=== PATIENT | male | born 1970 | race Caucasian/White ===

== ENCOUNTER 2021-05-27 11:18 | Inpatient (IN) | payer BC ==
[~2021-05-27] VITALS: Ht 177.8 cm; Wt 106.0 kg
--- NOTE | 2021-05-27 17:45 | NUR ---
PT ADMITTED TO THE MEDSUR FLOOR FROM ER, PT [id number], ROOM AIR , IND, DENIES ANY PAIN AT THE MOMENT, WAITING TO SEE DR FRANCIS, NPO, LR @ 125, COVID TEST NOT DONE IN ER ORDER PLACED PT IN ISOLATION PENDING RESULTS, NO OTHER NEEDS AT THE MOMENT.
--- NOTE | 2021-05-27 18:23 | NUR ---
RAPID COVID TEST DONE PER ORDER. COVID TEST COLLECTED FROM BOTH NARES W/O ISSUE. PT TOLERATED WELL.
--- NOTE | 2021-05-27 18:42 | NUR ---
PT SWABED FOR COVID TEST TOLERATED WELL WAITING ON RESULT.
--- NOTE | 2021-05-27 19:39 | NUR ---
SHIFT REPORT RECEIVED FROM YULISSA YUNG. PT RESTING IN BED. NO NEEDS AT THIS TIME. CALL LIGHT IN REACH.
--- NOTE | 2021-05-27 21:20 | NUR ---
IN TO GET VITALS, ICE WATER PROVIDED, URINAL PROVIDED FOR PT AT BEDSIDE, NO FURTHER NEEDS AT THIS TIME
--- NOTE | 2021-05-27 22:56 | NUR ---
IN TO CHECKON PTs OUTPUT, URINAL EMPTIED, ICE WATER FILLED, NO FURTHER NEEDS AT THSI TIME
--- NOTE | 2021-05-28 00:45 | NUR ---
IV PUMP ALARMING, RESOLVED. URINAL EMPTIED. PT REPORTS 1/10 BACK PAIN, DENIES NEED FOR INTERVENTION. NO OTHER NEEDS. CALL LIGHT IN REACH.
--- NOTE | 2021-05-28 01:09 | NUR ---
SHIFT REPORT GIVEN TO CHANELL YUNG.
--- NOTE | 2021-05-28 02:45 | NUR ---
IN TO GET VITALS, RN IN , PT HAS AN ELEVATED TEMP, PROVIDED ICE PACKS, NO FURTHER NEEDS
--- NOTE | 2021-05-28 02:59 | NUR ---
AWAKES EASILY, ON ROOM AIR, IVF INFUSING lac, TEMP 101.5 ORALLY. ICE PACKS TO AXILLA AND LOWER ABD. MEDICATED WITH TORADOL PER ABD PAIN AND FEVER, MESSAGE LEFT WITH DR FRANCIS, WILL CALL HIM AGAIN AND NOTIFY HIM OF TEMP
--- NOTE | 2021-05-28 03:03 | NUR ---
DR FRANCIS NOTIFIED VIA PHONE ABOUT TEMP 101.5, NEW ORDERS FOR TYLENOL 1GRAM PO Q6H PRN
--- NOTE | 2021-05-28 03:16 | NUR ---
Tylenol 1000mg po given per 101.5 temp. ice packs to axillary area and groin. temp rechecked at this time too 100.0
--- NOTE | 2021-05-28 06:11 | NUR ---
pt has slept off and on, on room air. was medicated with Toradol per c/o abd pain. Received Tylenol po and ice compresses were applied to axilary and groin area per temp of 101.5 mid shift this am. effective, temp 98.5 at this am,. NPO since midnight for possible surgery sometime today. pamphlet given earlier all questions answered to his satisfaction. tolerating well, IVF infusing w/o problems. voiding QS, call light at bedside
--- NOTE | 2021-05-28 07:10 | NUR ---
report recieved from assembler 1st shift rn npo since , plan for surgery today consent signed and in chart
--- NOTE | 2021-05-28 08:01 | NUR ---
rn in to do assessment and give morning meds, denies pain at the moment. A&Ox4 room air ind, LR @ 125, sales order coordinator setting up for chg shower, no needs at the moment
--- NOTE | 2021-05-28 09:46 | NUR ---
joselito from surgery here for patient. report given.
--- NOTE | 2021-05-28 13:32 | NUR ---
patient is in surgery, off of med surg floor.
--- NOTE | 2021-05-28 14:10 | NUR ---
MED REC COMPLETE
--- NOTE | 2021-05-28 14:14 | NUR ---
05/28/21 1414 Hernandez,Sandra Zapata 1401: PATIENT COUGHING. ORAL AIRWAY REMOVED. 1405: PATIENT DIAPHORETIC. DENIES PAIN. COOL WASHCLOTH PLACED ON FOREHEAD.
--- NOTE | 2021-05-28 14:45 | NUR ---
PT BACK FROM SURGERY, AWAKE AND ALERT ON ROOM AIR, VSS PAIN IS TOLERABLE PER PATIENT, PLACED ON CONTINOUS PULSE OX, PT HAS 2 INCSIONS RUQ WITH STERI STRIP ACTICOAT TEGADERM , SCANT DRAINAGE ON , UMBILICAL SITE STERI STRIP, JOLENE DRAIN IN RLQ, BILI DRAIN IN PLACE, MIN IN PLACE. SCHUYLER AT BEDSIDE
--- NOTE | 2021-05-28 15:45 | NUR ---
RN IN TO DO POST OP VITALS, PT IN BED WACTHING TV DENIES N/V , DRESING REAMINS THE SAME WITH SLIGHT SHADOWING, TOLERATING LIQUID, DRAINS INTACT UOP STABLE, VSS CONTINUE TO MONITOR
--- NOTE | 2021-05-28 16:53 | NUR ---
RN IN ROOM TO TO POST OP VS, PT SITTING IN BED AWAKE AND ALERT STATES PAIN IS AT A 2/10 BUT OCCAIONALLY JUMPS UP TO 10/10 WITH COUGH, DOESNT WANT ANY PAIN MEDS, TOLERATING FLUIDS, ABLE TO EAT JELLO AND PUDDING. DRESSING REMAINS THE SAME SLIGHT SHADOWING ON DRESSINGS VSS NO OTHER NEEDS
--- NOTE | 2021-05-28 17:45 | NUR ---
rn in to do post op vitals and assessment, patient tolerated dinner had a soup pain is getting a little worse 1 percocet given, alert and awake, room air, drains emptied 20 out of qian, 90 out of ttube, and 250 out of troncoso, patient is hot and sweating no fever at the moment cold wash rag and provided no other needs at the moment
--- NOTE | 2021-05-28 19:38 | NUR ---
pt awake, hob elevated, on room air, clear lungs, abd tender, ofe, RQuad incision covered with opticot/opsite, ss over umbilical area, TT patent draining mamadou colored thick drainage. qian with ss drainage. f/c not chronic in place, CPOX at bedside post op. tolerating liquids well, IVF infusing LAC w/o problems, medicted with toradol per abd pain, not passing gas. SCDS in place family in room, call light at bedside
--- NOTE | 2021-05-28 19:56 | OR ---
[facility] [address], [place] [address] Signed DATE OF OPERATION: 05/28/2021 SURGEON: Radha Francis MD PREOPERATIVE DIAGNOSES: 1. Acute cholangitis with obstructed common bile duct and jaundice. 2. probable obstructing distal common bile duct stone with associated acute cholecystitis POSTOPERATIVE DIAGNOSES: 1. Severe acute and chronic cholecystitis with complete common duct obstruction, greater than 1 cm stone. 2. 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 PROCEDURES: 1. Laparoscopy with conversion to open cholecystectomy, prolonged, complicated, and difficult. 2. Intraoperative cholangiogram x3. 3. Open common bile duct exploration. 4. Flexible choledochoscopy with extraction of obstructing distal common duct stone, placement of T-tube and completion cholangiogram, prolonged, complicated and difficult. ANESTHESIA: General endotracheal, Delroy Milton, BASE FILLER and local 20 mL of 0.25% Marcaine. INDICATION: This 50-year-old white male was admitted through the emergency room yesterday on May 27, 2021, clinically jaundiced with a bilirubin greater than 5.5, today 6.4 with elevated liver enzymes. His initial evaluation was a CT scan which showed marked dilation of intrahepatic ductal structures and a gallbladder which was somewhat distorted, but without obvious stones. There was no sign of neoplasm of the ampulla or pancreatic head. A subsequent ultrasound was performed at my request, which confirmed gallstones within the gallbladder. One was quite large and high probability of common duct stones as well. He has been admitted, fluid resuscitated, given intravenous antibiotics and is prepared at this point for operation. Notably, in addition to elevated liver enzymes and bilirubin, he has had clinical signs and symptoms of cholangitis, having temperature elevation as high as 101.1. He is Electronically Signed By: RADHA FRANCIS MD 05/28/211955 PATIENT NAME: RENAN MICHEL OPERATIVE REPORT DATE OF : 70 REPORT #: [id number] PHYSICIAN: RADHA FRANCIS MD PCP: TED FLORES PA-C REPORT IS CONFIDENTIAL AND NOT TO BE RELEASED WITHOUT AUTHORIZATION [facility] [address], [place] [address] Signed ready for operation at this time, which will include cholecystectomy, preferably by a laparoscopic approach, but an open procedure was discussed as well. A common duct exploration is quite likely --laparoscopic or open as necessary. We are mindful of the complete lack of regional access for ERCP of late; and a goal of complete clearance of the common duct is a primary goal of treatment at this time. FINDINGS: On laparoscopy, there was no sign of ascites or carcinomatosis. The liver appeared clinically normal. There was dense fibrosis of omentum and the round ligament with the falciform ligament in the region to the midportion of the gallbladder. The gallbladder was quite chronically inflamed and thickened and acutely inflamed as well. Conversion to open operation was definitely required. As it turns out, intense fibrosis of the second portion of the duodenum in the bulbar part to the infundibulum of the gallbladder was noted. This required meticulous dissection as the gallbladder was quite inflamed both chronically and acutely. A " coil spring " appearance of the infundibulum was noted concordant to pre op imaging. The operation could not possibly be done safely by laparoscopy. Due to the finding of dense chronic fibrosis of the infundibulum of the gallbladder to the duodenum extreme care was undertaken in dissecting out the pertinent anatomy of the biliary tree. This did allow ultimatel for cholecystectomy as well as open common duct exploration and choledochoscopy through the common bile duct with relief of the common bile duct obstruction, extracting a single 1.5 cm gallstone. There was a larger stone within the gallbladder itself and gallbladder debris and purulent material within the gallbladder itself. The proximal biliary tree was normal. Completion T-tube cholangiogram showed flow of contrast into the duodenum. There was good position of the T tube and no bile leak. An accessory drain was also placed in the sub hepatic space. DESCRIPTION OF PROCEDURE: The patient was brought to the operating room, given a general endotracheal anesthetic. Preoperative antibiotic Ancef was given in the operating room based on his dosing interval. Sequential compression device stockings used. Heparin had been subcutaneously administered. A Roberson catheter was placed, mindful of the high probability of a lengthy operation. The abdomen was clipped and prepared with a Betadine solution and draped sterilely. An infraumbilical incision was made and using an open Kellee cannula technique pneumoperitoneum was achieved to a level of 14 mmHg with carbon dioxide gas. Intraabdominal inspection showed no sign of ascites or carcinomatosis. Visualization of the gallbladder showed a white dense tip of the gallbladder with intense inflammatory changes of omentum and the round ligament to the region of the gallbladder. An Electronically Signed By: RADHA FRANCIS MD 05/28/211955 PATIENT NAME: RENAN MICHEL OPERATIVE REPORT DATE OF : 70 REPORT #: [id number] PHYSICIAN: RADHA FRANCIS MD PCP: TED FLORES PA-C REPORT IS CONFIDENTIAL AND NOT TO BE RELEASED WITHOUT AUTHORIZATION [address] [address] Signed additional set of trocars in the subxiphoid, right midclavicular, and right anterior axilla line was placed. Using blunt and electrocautery dissection, attempts were made to free the adherent omentum from the gallbladder. Some progress was made, however, it appeared that a hollow viscus, possibley the hepatic flexure of the colon, was densely adherent to the gallbladder and further dissection was deemed inadvisable. On that basis the laparoscope was removed. The trocar sites were found to be hemostatic and the infraumbilical fascial incision was reapproximated with interrupted 0 Vicryl suture. Plans were then made for open operation. A right subcostal incision was made in the usual way transecting subcutaneous tissue, rectus sheath and rectus abdominis muscle with electrocautery and the posterior sheath and its attendant peritoneum similarly incised. The abdomen was entered. A Bookwalter retractor was affixed to the table. Found was intense inflammation of the omentum and hollow viscus which in time became clear as the duodenum. Meticulous care was maintained to dissect the structures away from the gallbladder. At one point, and consideration was made that this might represent actual malignancy, but further dissection showed it simply to be chronic intense fibrosis. The Gallbladder was freed from the duodenum with meticulous care using blunt dissection with a Kittner dissector, minimal amounts of cautery and suction device. Ultimately, virtually all the gallbladder could be identified and the duodenum free. Centrally, the anatomy of the port hepatis was quite uncertain. At that point, rather than further define the infundibulum, consideration was made for a cholecystectomy from a top down approach if necessary. The peritoneum anteriorly and posteriorly on the gallbladder at the apex was undertaken and dissection carried through the thickened fibrotic wall of the gallbladder. Entry to the gallbladder was made as was inevitable. Purulent material was noted within the gallbladder. This was Gram stained and cultured. Further dissection was undertaken toward the infundibulum of the gallbladder down to the lowest gallbladder segement. Photographs were taken throughout. A large stone at least 2.5 cm was identified and removed. The outlet of the gallbladder was not obvious due to fibrosis. It appeared that the infundibulum was coiled, extended superiorly, then inferiorly and ultimately to the remaining of the portal structures. A butterfly needle was used to perform cholangiogram in this area of presumed infundibulum which confirmed the anatomy as suspected. Further dissection was undertaken ultimately freeing it to what likely would be the common hepatic duct. It was quite clear that the infundibulum of the gallbladder was fibrotic and thickened and not going to end up being a narrow or even moderate size of cystic duct proper. Consideration was made, that this could represent a choledochal cyst or something of that sort. However, further dissection was undertaken and another butterfly needle cholangiogram performed showing Electronically Signed By: RADHA FRANCIS MD 05/28/211955 PATIENT NAME: RENAN MICHEL OPERATIVE REPORT DATE OF : 70 REPORT #: [id number] PHYSICIAN: RADHA FRANCIS MD PCP: TED FLORES PA-C REPORT IS CONFIDENTIAL AND NOT TO BE RELEASED WITHOUT AUTHORIZATION [address] [address] Signed that simply the infundibulum and cystic duct were quite wide and very fibrotic. At that point, the common duct had been well identified. A common duct exploration was clearly needed given the cholangiogram findings which certainly did include obstruction, the cholangiogram having shown a completely obstructing distal common duct stone. A longitudinal choledochotomy was made in the common bile duct inferior to the cystic duct entry after stabilizing the common bile duct with 4-0 PDS sutures. Entry to the common bile duct was with an #11 blade and extended inferiorly with Lopez scissors. Egress of clear bile was noted. Irrigation was undertaken. There was no egress of the stone at that point. A flexible choledochoscope with saline infusion was placed into the choledochotomy; proximal evaluation of the common hepatic duct showed normal biliary radicles with no sign of neoplasm or abnormality. The choledochoscope was then directed distally which identified a relatively large fully obstructing distal common duct stone. A basket device was used to ultimately grasp it and extract it in continuity with the scope. The choledochotomy was rather small compared to the stone so extension of the common duct incision was undertaken allowing it ultimately to be removed. Reintroduction of the scope showed clearance of any further stone but certainly inflammatory changes and a roughed up appearance of the distal duct as might be expected from the impacted stone. A number 14 T tube was cut to the usual configuration and placed into the choledochotomy and secured into the common bile duct with interrupted 4-0 PDS sutures. The remnant of the gallbladder with its broad infundibulum and poorly defined cystic duct was secured with a tonsil clamp and oversewn in a running horizontal mattress configuration, providing complete closure to the remnant which allowed for amputation of the gallbladder itself. Photographs were taken. Irrigation was undertaken; through an available trocar site a 7 mm flat candace drain was placed in the subhepatic space. A T-tube cholangiogram was then performed, which showed free flow of contrast in the biliary tree with passage of contrat into the duodenum. There was clearance of the obstructing stone and no residual obstruction. Irrigation was undertaken. Hemostasis was assured with electrocautery in the liver bed Notably, the infundibulum had been oversewn with a running 2-0 PDS and showing good security and no sigh of bile leakage. Electronically Signed By: RADHA FRANCIS MD 05/28/211955 PATIENT NAME: RENAN MICHEL OPERATIVE REPORT DATE OF : 70 REPORT #: [id number] PHYSICIAN: RADHA FRANCIS MD PCP: TED FLORES PA-C REPORT IS CONFIDENTIAL AND NOT TO BE RELEASED WITHOUT AUTHORIZATION [facility] [address], [place] [address] Signed The drains and T-tube were brought through the abdominal wall and secured to the skin with nylon suture. Plans were then made for closure. The posterior sheath and its attendant peritoneum were reapproximated with running #1 PDS suture to muscular layer. Subcutaneous tissue was irrigated with saline solution. The anterior rectus sheath reapproximated with running PDS suture as well. The skin was closed with running subcuticular 3-0 Vicryl. The trocar sites were similarly reapproximated after irrigation. Steri-Strips were applied as was an Acticoat dressing. An OpSite was used to secure the T-tube to the abdominal wall as well as to the accessory drain. The T-tube was attached to 32-inch tubing and a bile bag. The patient was ultimately extubated and transferred to the recovery room in good condition having suffered no complication. Blood loss was estimated at 100 mL. Sponge, needle, and instrument counts were reported as correct x3. The operation was prolonged, complicated, and difficult lasting from approximately 10:30 a.m. to 2 p.m. but was accomplished safely and effectively without complication. Radha Francis MD JM/MODL /[id number] cc: TULIO [address] [facility] Copies: TED FLORES PA-C ~ Electronically Signed By: RADHA FRANCIS MD 05/28/21 195 PATIENT NAME: RENAN MICHEL Zev OPERATIVE REPORT DATE OF : 70 REPORT #: [id number] PHYSICIAN: RADHA FRANCIS MD PCP: TED FLORES PA-C REPORT IS CONFIDENTIAL AND NOT TO BE RELEASED WITHOUT AUTHORIZATION
--- NOTE | 2021-05-28 22:42 | NUR ---
repositions self in bed, hob elevated. ivf infusing. no c/o pain. TT draining bile looking drainage, qian with ss drainage. abd dressing with old drainage f/c patent. goes back to sleep right away, will take for a walk when more awake
--- NOTE | 2021-05-29 01:42 | NUR ---
USED CALL LIGHT, TURNED AND REPOSITIONED, CONFUSED TO PLACE, DATE AND SITUATION, REORIENTED, CALL LIGHT AT BEDSICE. F/C PATENT, IVF INFUSING W/O PROBLEMS
--- NOTE | 2021-05-29 02:25 | NUR ---
awakes easily, coop with assessment. on room air. abd tender HEA, passing gas. RQuadrant dressing in place with old drainage. JOLENE and TT patent. F/C patent. pt aware that f/c may be dc'd after walking if he tolerates it good. stated understanding, tolerating liquids well, no emesis. c/o abd pain, medicated with 2 percocet
--- NOTE | 2021-05-29 03:06 | NUR ---
Pt ambulated hallway up to nursing station and back, tolerated well, back to bed. passing gas. would like to have f/c dc'd at [id number] with vitals. went back to sleep after returning to bed
--- NOTE | 2021-05-29 04:48 | NUR ---
Resting, room air, no distress. IVF infusing,
--- NOTE | 2021-05-29 06:15 | NUR ---
pt medicated with Toradol early on shift, motrin this am and percocet mid shift, per abd pain, effective. abd tender dressing R low quad, TT and QIAN patent. HEA, passing gas. ambulated hallway up to [facility] station, tolerated well. f/c was dc'd at 0604. IVF infusing LA w/o problems, no c/o adverse reaction to abx. pleasant and cooperative. qian draining teaching done, receptive, cont to reinforce. tolerated liquids well, no emesis.
--- NOTE | 2021-05-29 07:30 | NUR ---
Shift report received from AGA Le pt resting safely in bed w/ call light in reach. Pt denies any needs at this time.
--- NOTE | 2021-05-29 08:50 | NUR ---
Pt sitting up in bed safely w/ call light in reach. Pt denies pain or nause at this time, surgical incision and drains WNL, no signs of infection. Active bowel tones, and pt reports passing gas, abd slightly tender w/ palpation. Morning assesment complete, scheduled meds given, IV fluids infusing per providers orders. Pt denies any further needs at this time, pt curious about possibly going home, informed pt he will more than likely stay another night but can discuss this w/ when he comes in this afternoon
--- NOTE | 2021-05-29 11:30 | NUR ---
Pt sitting up in bed safely w/ call light in reach pt denies any pain, nausea, or needs at this time.
--- NOTE | 2021-05-29 12:34 | NUR ---
Dr. Gray in room to asses pt, who informed the pt he will in fact stay another night and possibly discharge tomorrow morning as long as he meets criteria. Pt understanding and agreeable pt still denies pain or nausea at this time. Pt resting safely in bed w/ call light in reach
--- NOTE | 2021-05-29 12:52 | HP ---
[facility] [address], [place] [address] Signed ADMISSION DATE: 05/27/2021 REASON FOR ADMISSION: Acute cholecystitis with choledocholithiasis and common duct exploration; acute cholangitis. HISTORY: This 50-year-old white man lives in [place] with his three teenage daughters. His ex- accompanies him at this time. The patient has had approximately five days of increasing abdominal pain, not feeling well. He presented to the emergency room at approximately 1:30 this afternoon, was evaluated by Dr. Cleaning. He was found to have clinical evidence of jaundice and lab studies confirmed this with a bilirubin of 5.8, and other liver enzymes elevated as well including alkaline phosphatase of 201. A CT scan of the abdomen was performed and interpreted by Dr. Tavares showing significant intrahepatic ductal dilatation of biliary tree. There were no stones of the gallbladder or common duct seen on that imaging study. I was called by Dr. Cleaning and recommended an ultrasound be performed to ascertain if in fact there were gallstones associated with this process or perhaps this represented a neoplasm. The ultrasound that was performed did confirm in fact gallstones and an obstructed common bile duct with suspicion of noncalcified stone in the distal common bile duct. The bed of the pancreas had no actual neoplasm on either study. He is admitted for further evaluation and care. Currently, the patient feels rather uncomfortable and definitely thirsty. IV fluids are running. PAST MEDICAL HISTORY: Rather unremarkable. He has no prior abdominal surgery of any sort. MEDICATIONS: He takes no medications on a routine basis. ALLERGIES: He has allergy only to penicillin. SOCIAL HISTORY: He is , but on friendly terms with his , who is with him at this time. He has three teenage daughters 14, 16, and 19; his 19-year-old daughter is having her birthday tomorrow. The patient works at a [employer] in [place], [place] and commutes from [place] on a daily basis and has for 21 years. REVIEW OF SYSTEMS: Electronically Signed By: RADHA FRANCIS MD 05/29/21 1252 PATIENT NAME: RENAN MICHEL HISTORY AND PHYSICAL DATE OF : 70 REPORT #: [id number] PHYSICIAN: RADHA FRANCIS MD PCP: TED FLORES PA-C REPORT IS CONFIDENTIAL AND NOT TO BE RELEASED WITHOUT AUTHORIZATION [address] [address] Signed He denies any shortness of breath or chest pain. He has had no dysphagia or dysuria. Denies any hematemesis or blood per rectum. DICTATION ENDS HERE MD BARBIE Treviño/ZARYA /[id number] Copies: ~ Electronically Signed By: RADHA FRANCIS MD 05/29/21 1252 PATIENT NAME: RENAN MICHEL HISTORY AND PHYSICAL DATE OF : 70 REPORT #: [id number] PHYSICIAN: RADHA FRANCIS MD PCP: TED FLORES PA-C REPORT IS CONFIDENTIAL AND NOT TO BE RELEASED WITHOUT AUTHORIZATION
--- NOTE | 2021-05-29 12:52 | HP ---
[facility] [address], [place] [address] Signed ADMISSION DATE: 05/27/2021 CONTINUATION: Continuation to dictation #[id number]. REVIEW OF SYSTEMS: The patient denies any shortness of breath or chest pain. He does feel somewhat thirsty. He has had mild right upper abdominal pain and epigastric pain and bilateral flank pain as well. He has had no hematemesis or blood per rectum. He has noted jaundice and dark colored urine. PHYSICAL EXAMINATION: GENERAL: Pleasant white man, who looks to be in no significant distress at this time. VITAL SIGNS: Temperature is 97.9, previously 99.2 and as high as 101.2 at approximately 3:46 p.m. today. His blood pressure currently is 143/87, pulse is 77. Trachea is midline. Mucous membranes are rather dry. CHEST: Clear. HEART: Regular without murmur. ABDOMEN: Nondistended and there is no clinical evidence of ascites. He has minimal tenderness in right subcostal area. There is no palpable mass. EXTREMITIES: Show no clubbing, cyanosis, or edema. LABORATORY STUDIES: Show white count of 10.0, hematocrit 43.3, platelets 146,000. Chem profile with a sodium of 128, potassium 3.2, chloride 94, creatinine 1.10, glucose 122, lactic acid 0.5, total bilirubin 5.8, AST 78, ALT 228, alkaline phosphatase 201. Ammonia level is 21. Lipase is 101. Imaging studies were reviewed and reports reviewed as well. There is marked dilation of the intrahepatic ductal system as well as the gallbladder itself. There is a cyst measuring 4.2 cm contiguous with the apex of the gallbladder. Within the gallbladder, there is an echogenic stone near the neck measuring 1.9 cm in length, which appears to be fixed and non-movable. There is some sludge within the lumen. The gallbladder wall is thickened measuring 3.5 mm. There is no pericholecystic fluid or ascites. The common bile duct superior to the pancreas measures 14 mm. There is no stone identified within the duct on the CT scan. Ultrasound performed confirmed parenchyma of the liver is heterogeneous without evidence of mass. ASSESSMENT: The patient appears to have acute calculus cholecystitis with cholangitis and common duct obstruction, likely related to stones or sludge. Appears to be no evidence of Electronically Signed By: RADHA FRANCIS MD 05/29/21 1252 PATIENT NAME: RENAN MICHEL HISTORY AND PHYSICAL DATE OF : 70 REPORT #: [id number] PHYSICIAN: RADHA FRANCIS MD PCP: TED SHAH PA-C REPORT IS CONFIDENTIAL AND NOT TO BE RELEASED WITHOUT AUTHORIZATION [facility] [address] [place] [id number] Signed neoplasm of the ampulla or the head of the pancreas, so that could never be known entirely on imaging studies alone. The patient is admitted to undergo fluid resuscitation, IV antibiotic administration, anticipating a plan for laparoscopic cholecystectomy with laparoscopic common duct exploration tomorrow. I discussed with the patient and his ex- the risks of bleeding, infection, bile duct injury, need for open procedure and importantly failure to cure the problem laparoscopically requiring an open procedure. He understands this and wishes to proceed. If open common duct exploration is required, a drain as well as a T-tube would likely be beneficial. For tonight, he is okay to have clear liquids and additional fluids will be given. He will be maintained on IV antibiotics, DVT prophylaxis, and pain control. He will be n.p.o. after midnight, and we will anticipate surgery tomorrow. His original presentation was consistent with acute cholangitis, which seems to be clinically clearing with interventions already initiated. I did discuss with the patient and his ex- the possibility of neoplastic change rather than biliary stones as causing this problem. There is no "double duct" sign, which more readily identified such phenomenon, but it is still a possibility. MD BARBIE Treviño/ZAYRA /[id number] cc: Dr. Sy Shah PA-C Copies: TED SHAH PA-C ~ Electronically Signed By: RADHA FRANCIS MD 05/29/21 1252 PATIENT NAME: RENAN MICHEL HISTORY AND PHYSICAL DATE OF : 70 REPORT #: [id number] PHYSICIAN: RADHA FRANCIS MD PCP: TED SHAH PA-C REPORT IS CONFIDENTIAL AND NOT TO BE RELEASED WITHOUT AUTHORIZATION
--- NOTE | 2021-05-29 14:45 | NUR ---
Pt c/o 5/10 pain at surgical incision site, PRN Tylenol and Motrin given per request. Pt ambulated 3 full laps in hallway, bed linens changed and pt now resting safely w/ call light in reach, no further needs at this time.
--- NOTE | 2021-05-29 15:23 | NUR ---
PT JUST RETURNED FROM WALKING THE RAMIREZ. PT NOW SITTING ON EDGE OF BED RANTING ABOUT BEING IN THE HOSPITAL. CALL LIGHT WITHIN REACH, NO FURTHER NEEDS AT THIS TIME.
--- NOTE | 2021-05-29 16:00 | NUR ---
Pt resting in bed safely w/ call light in reach. Pt states pain is better after PRN meds and ambulating. Pt also states he was able to burp after ambulating and felt less pressure in his abdomen. Pt denies any further needs at this time
--- NOTE | 2021-05-29 17:39 | NUR ---
PT LYING IN BED WATCHING TV. IN ROOM. PT HAS NOT EVEN UNWRAPPED DINNER YET. CALL LIGHT IN REACH, NO FURTHER NEEDS AT THIS TIME.
--- NOTE | 2021-05-29 18:00 | NUR ---
Pt up in hallway ambulating, pt denies any pain, nausea, or needs at this time.
--- NOTE | 2021-05-29 18:24 | NUR ---
PT JUST FINISHING DINNER ON EDGE OF BED. AGA YANCEY NOTIFIED OF LOW FLUID INTAKE. CALL LIGHT WITHIN REACH, NO FURTHER NEEDS AT THIS TIME. PT INDEPENDENT IN ROOM
--- NOTE | 2021-05-29 21:31 | NUR ---
Awake, watching TV, c/o abd pain. medicated with 2 Percocet tabs. abd with slight distention, HEA, passing gas, no bm. ss low umbilical area and bruise present. incision edges well approx, dry. TT patent drainig bile colored discharge, teaching done, cont to reinforce. JOLENE patent with ss drainage. On room air, lungs clear bilat, SL LFA patent. no c/o adverse reaction to abx IV. tolerating fluids well, no emesis. voiding QS light mamadou colored urine. alert and oriented, uses call light, ambulating in room, scds
--- NOTE | 2021-05-30 00:04 | NUR ---
MEDICATED WITH MOTRIN PER ABD PAIN, AWAKE, WATCHING TV
--- NOTE | 2021-05-30 02:28 | NUR ---
RESTING, EYES CLOSED, NO DISTRESS, ON ROOM AIR. CALL LIGHT AND FLUIDS AT BEDSIDE. NO FURTHER C/O PAIN. TT AND JOLENE PATENT
--- NOTE | 2021-05-30 03:21 | NUR ---
C/O ABD PAIN, MEDICATED WITH 1 PERCOCET. ABD TENDER OPTICOT AND OPSITE TO r QUAD. JOLENE AND TT PATENT. TT EMPTYING TEACHING DONE, COOPERATIVE. TOLERATING LIQUIDS WELL. UP TO BR, USES URINAL, VOIDING QS, DARK YELLOW URINE.
--- NOTE | 2021-05-30 03:57 | NUR ---
RESTING, NO DISTRESS, HOB ELEVATED, EYES CLOSED. CALL LIGHT AT HANDS REACH
--- NOTE | 2021-05-30 06:21 | NUR ---
medicated with motrin per abd pain at this time. On room air. abd tender, passing gas, no bm. R quad opticot dressing with old drainage, covered with opsite. TT and JOLENE patent. sutured in place. pt has been taught on how to empty both JOLENE and TT, cont to reinforce teaching. Has been medicated with both Percocet and Motrin with good pain relief. Voiding QS dark yellow urine. ambulated in room, scds on, taken off at this time. tolerating well. alert andoriented. uses call light.
--- NOTE | 2021-05-30 07:31 | NUR ---
PT UP WALKING IN ROOM, STATES HE FEELS "PRETTY GOOD" DENIES PAIN HOPES TO HOME TODAY. DENIES NEEDS AT THIS TIME AGREES HE IS READY FOR BREAKFAST
--- NOTE | 2021-05-30 08:39 | NUR ---
PT TOLERATES 100% OF REGULAR BREAKFAST NO C/O PAIN OR NAUSEA. UP TO AMBULATE THE HALLS SEVERAL LAPS WELL TOLERATED.
--- NOTE | 2021-05-30 10:03 | NUR ---
PATIENT IN BED RESTING AT THIS TIME, AT BEDSIDE. PATIENT SAID SHOWER MAYBE LATER, HE WILL LET ME KLNOW. VITALS AND I&O'S CHARTED. CALL LIGHT IN REACH. NO FURTHER NEEDS AT THIS TIME.
--- NOTE | 2021-05-30 10:34 | NUR ---
REVIEWED PAIN MEDICATIONS AVAILABLE WITH THIS PT, AND WHEN HE WAS MEDICATED LAST. HE DENIES NEED OF TYLENOL OR OTHER, STATES HE FEELS PRETTY GOOD, AND WILL NOTIFY STAFF IF HE FEELS HE NEEDS SOMETHING. AT BEDSIDE WATCHING TV
--- NOTE | 2021-05-30 11:02 | NUR ---
I was able to meet with Gordy and his x- this morning. Both state that they are very happy with his care. He feels that the nurses are doing "a good job." He did say that he doesn't quite understand his medications being given in the hospital. Stating "I hardly ever take medicine so I don't really understand." We took time to go over all his current medications in the hospital, including the side effects and what they are used for. Also shared the ones that are scheduled and the ones he asks for, i.e. narcotics, zofran. Also explained the reason for the Lovenox, etc. that are being used prophylactically in the hospital. Mr Sellers does talk about being able to go back to work, I shared that he would need to discuss this with his doctor. His ex- states that she and their two daughters will be in the home to help him as needed until he is recuperated. Both patient and his ex- Soraya deny questions or concerns at this time.
--- NOTE | 2021-05-30 13:22 | NUR ---
PT HAS AMBULATED THE RAMIREZ SEVERAL TIMES THIS SHIFT. EATEN 100% BOTH MEALS CONTINUES WITHOUT C/O DISCOMFORT. EMPTY'S OWN DRAINS APPROPRIATELY ABLE TO DEMONSTRATE STRIPPING THE LINES TO THE JOLENE. DENIES QUESTIONS OR CONCERNS
--- NOTE | 2021-05-30 14:04 | NUR ---
PATIENT IND IN ROOM. VITALS AND I&O'S CHARTED. CALL LIGHT IN REACH. NO FURTHER NEEDS AT THIS TIME.
--- NOTE | 2021-05-30 14:10 | NUR ---
PT ALERT, ORIENTED AND RESTING IN BED WITH TV ON AND LIGHTS AND SHADE DRAWN. PT ADMITTED HE HAS NEVER BEEN IN HOSPITAL BEFORE. ASKED PT IF HE FEELS THAT HE HAS BEEN KEPT INFORMED, TO WHICH HE REPLIED: "I GUESS. I REALLY DON'T KNOW WHAT QUESTIONS TO ASK". SPENT TIME HELPING PT, GAVE BLESSING AND G.POST. WILL CONTINUE TO FOLLOW NEEDED
--- NOTE | 2021-05-30 16:37 | NUR ---
PT RESTING IN BED DENIES PAIN OR NEEDS OF.
--- NOTE | 2021-05-30 17:43 | NUR ---
DR FRANCIS IN TO SEE PT DISCUSSES PLAN GOING FORWARD AT LENGTH. ALL QUESTIONS ANSWERED. PT DENIES CONCERNS. T-TUBE CLAMPED WILL MONITOR FOR NAUSEA OR INCREASED PAIN.
--- NOTE | 2021-05-30 17:46 | NUR ---
PATIENT GIVEN 600MG OF MOTRIN FOR 3/10 ABDOMINAL PAIN.
--- NOTE | 2021-05-30 18:13 | NUR ---
ELEVATED BP REPORTED TO DR FRANCIS
--- NOTE | 2021-05-30 18:50 | NUR ---
Patient BP was 152/90. MAP 106. Pulse was 68. On right arm. RN was notified.
--- NOTE | 2021-05-30 19:05 | NUR ---
BEDSIDE REPORT RECEIVED FROM OFFGOING RNNEMO. CALL LIGHT IN REACH.
--- NOTE | 2021-05-30 21:15 | NUR ---
PT ASSESSMENT COMPLETE. PT DENIES PAIN, NAUSEA, OR SOB. PT REPORTS OCCASIONAL COUGH, NOT NOTED DURING THIS ASSESSMENT. LUNG SOUNDS CLEAR THROUGHOUT. EDUCATION REGARDING TURN, COUGH, AND DEEP BREATHING AND INCREASED RISK OF PNA POST OPERATIVELY. PT STATES UNDERSTANDING. BT'S ACTIVE. JOLENE DRAINING SEROSANG DRAINAGE. T-TUBE CLAMPED, PT TOLERATING WELL. ABD SOFT, NON TENDER TO PALPATION. IV FLUSHED, PATENT, WNL. PT REQUESTS TO TAKE SHOWER, FAMILY AT BEDSIDE. IV WRAPPED, SUPPLIES GATHERED. PT STATES HE WILL CALL IF HE NEEDS HELP/ WHEN FINISHED. DENIES FURTHER NEEDS AT THIS TIME. CALL LIGHT IN REACH.
--- NOTE | 2021-05-30 23:57 | NUR ---
PT ROUNDING. PT LYING IN BED AWAKE, WATCHING TV. PT WITH SLIGHT COUGH WHILE FIBER OPTIC ASSEMBLER AT BEDSIDE. AGREES PAIN IS IMPROVED BY PRN PREVIOUSLY ADMINISTERED. STATES, "THE PAIN MEDS ARE WORKING OR THAT COUGH WOULDVE HURT LIKE HELL." DENIES FURTHER NEEDS AT THIS TIME. CALL LIGHT IN REACH.
--- NOTE | 2021-05-31 03:21 | NUR ---
PT ROUNDING. PT RESTING IN BED, WAKES WHEN WRTIER OPENS THE DOOR. PT WAVES, DENIES NEEDS. CALL LIGHT IN REACH.
--- NOTE | 2021-05-31 06:09 | NUR ---
PT ASSESSMENT COMPLETE. PT RESTING IN BED AWAKE, COOK ROAST AT BEDSIDE. PT REPORTS INCREASING PAINN, RATES 5/10. REQUESTS PRN PAIN MEDICATION, SEE EMAR. PT DENIES NAUSEA, OR SOB. BT'S ACTIVE.ABD NON TENDER TO PALPATION. T-TUBE REMAINS CLAMPED. JOLENE WITH SEROSANGUINOUS DRAINAGE PRESENT. ICE WATER REFILLED. PT DENIES FURTHER NEEDS AT THIS TIME. CALL LIGHT IN REACH.
--- NOTE | 2021-05-31 07:53 | NUR ---
PT RESTING IN BED AGREES HE HAD A GOOD NIGHT. DENIES PAIN EXCEPT WITH COUGH AND MOVEMENT, COMFORTABLE AT REST. STATES HE IS READY FOR BREAKFAST AND IS TOLERATING T-TUBE BEING CLAMPED FINE. NO INCREASED PAIN, NAUSEA, OR BLOATING. FRESH H20 AT BEDSIDE CALL LIGHT AND NEEDED ITEMS IN REACH.
--- NOTE | 2021-05-31 08:54 | NUR ---
PT TOLERATES 100% OF REGULAR MEAL CONTINUES UP IN ROOM INDEPENDANTLY. AGREES HE WILL WALK THE HALLS AGAIN HE WAITS FOR DC.
--- NOTE | 2021-05-31 10:07 | NUR ---
PATIENT IN BED RESTING AT THIS TIME. VITALS AND I&O'S CHARTED. PATIENT REFUSED SHOWER. AM CARE AND ORAL CARE SUPPLIES AT SINK AND PATIENT IND. IN ROOM. CALL LIGHT IN REACH. NO FURTHER NEEDS AT THIS TIME.
--- NOTE | 2021-05-31 11:00 | NUR ---
Spoke with Gordy. He plans on dc today and is awaiting Dr. Leavitt for discharge. He believes plans on sending him home today. Pt denies any needs for discharge. He lives with daughters and his ex will assist also.
--- NOTE | 2021-05-31 12:32 | NUR ---
PT RESTING IN HIS BED EATING NOON MEAL. AGREES HE IS SOMEWHAT PAINFUL AND WOULD LIKE PAIN MEDICATIONS. ADMINISTERED ORDERED
--- NOTE | 2021-05-31 14:01 | NUR ---
DR. FRANCIS IN TO SEE PATIENT, D/C JOLENE TUBE, REMOVE DRESSING FROM INCISION. T-TUBE LINE IS COVERED WITH CLEAR DRESSING. PATIENT GIVEN INSTRUCTIONS TO NOT LIFT ANYTHING OVER 20LBS.
[2021-05-31] MEDS ORDERED: OXYCODON-ACETA1 EAC2 PO (14:10)
[2021-05-31] MEDS ORDERED: IBUPROFEN600 MG PO (14:10)
[2021-05-31] MEDS ORDERED: CIPROFLOXACIN500 MG PO (14:10)
[2021-05-31] MEDS ORDERED: FAMOTIDINE20 MG PO (14:11)
[2021-05-31] MEDS ORDERED: ACETAMINOPHEN500 MG PO (14:11)
--- NOTE | 2021-05-31 14:37 | NUR ---
DR FRANCIS IN TO SEE PT DC ORDERS WRITTEN
--- NOTE | 2021-06-01 09:58 | PATH ---
[facility] [address] [place], [place] [address] Signed SPECIMEN(S): A GALLBLADDER WITH STONES SPECIMEN SOURCE: A. GALLBLADDER WITH STONES CLINICAL HISTORY: Acute cholecystitis. FINAL PATHOLOGIC DIAGNOSIS: Gallbladder, cholecystectomy: - Chronic cholecystitis. - Cholelithiasis. - No evidence of neoplasia. TWK:[id number] MICROSCOPIC EXAMINATION: Histologic sections of all submitted blocks are examined by light microscopy. These findings, together with the gross examination, support the pathologic diagnosis. GROSS DESCRIPTION: The specimen, labeled "RG," and designated on the requisition "gallbladder with stones," is received in formalin and consists of: Specimen: Previously incised gallbladder. Dimensions: Upon reconstruction, 8.2 x 3.3 x 2.8 cm. Serosa: Munoz to brown discolored, smooth, glistening. Cystic Duct: 0.3 cm in diameter, patent, and the margin is inked blue. Calculi: The specimen container contains two, hard, granular, yellow to brown, oval calculi that are 1.0 and 3.7 cm in greatest dimension. Mucosa: Munoz to brown, markedly denuded, glistening. Wall thickness: 0.2 up to 0.6 cm. Lymph node: No pericystic lymph nodes are grossly identified. Additional: None. Rehab Aide sections are submitted in cassette (A1). AI (under the direct supervision of a pathologist) The Gross Description was prepared using a voice recognition system. The report was reviewed for accuracy; however, sound-alike word errors, addition and/or deletions may occur. If there is any question about this report, please contact Client Services. PATIENT NAME: RENAN MICHEL PATHOLOGY DATE OF : 70 REPORT #: [id number] PHYSICIAN: HILLARY GONZALEZ PCP: TED FLORES PA-C REPORT IS CONFIDENTIAL AND NOT TO BE RELEASED WITHOUT AUTHORIZATION [facility] [address] [address] Signed PERFORMING LABORATORY: The technical component was performed by [place] [address] (Tuna Purse Seiner: Lois Ivey MD; CLIA# [id number]). Professional interpretation was performed by [employer] [facility], [address] [address] (CLIA# [id number]). Diagnostician: Yosvany Fernando MD Pathologist Electronically Signed 06/01/2021 Copies: ~ PATIENT NAME: RENAN MICHEL PATHOLOGY DATE OF : 70 REPORT #: [id number] PHYSICIAN: HILLARY GONZALEZ PCP: TED FLORES PA-C REPORT IS CONFIDENTIAL AND NOT TO BE RELEASED WITHOUT AUTHORIZATION
--- NOTE | 2021-06-01 13:37 | DS ---
[facility] [address] [place], [place] [address] Signed ADMISSION DATE: 05/27/2021 DISCHARGE DATE: 05/31/2021 REASON FOR ADMISSION: Acute cholecystitis and obstructive jaundice with cholangitis. HISTORY OF PRESENT ILLNESS: This 50-year-old white man, who lives in [place] presented to the emergency room with approximately five days of increasing abdominal pain. His evaluation in the emergency room by Dr. Cleaning included a CT scan, which showed dilatation of the intrahepatic ductal system and findings suggestive of common duct obstruction on that basis. Stones were not seen on the CT scan and a subsequent ultrasound was undertaken at my recommendation that confirmed large gallstone in the gallbladder and possible biliary tree, obstruction related to gallstones. On that basis, he was admitted for further evaluation and care. Notably, he did have elevated alkaline phosphatase of 201, bilirubin of 5.8, and had been febrile with temperature greater than 101. PHYSICAL EXAMINATION: GENERAL: Showed a well-developed, well-nourished white male . Trachea is midline. CHEST: Clear. HEART: Regular, without murmur. ABDOMEN: Nondistended. He had mild tenderness in right subcostal area. SKIN: Icteric completely. HOSPITAL COURSE: The patient underwent fluid resuscitation, IV antibiotic administration of Ancef. On May 28, 2021, he underwent laparoscopy intending for laparoscopic cholecystectomy and common duct exploration. He was found to have profoundly inflamed gallbladder with dense omental adhesions to the surface of the gallbladder such that a laparoscopic approach would be considered quite impossible. Conversion to open operation with a right subcostal incision was undertaken, where he was found to have a severely inflamed and fibrotic gallbladder more than just acutely inflamed, but chronically densely inflamed to the duodenum. Meticulous dissection allowed for separation of the duodenum ultimately. 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 Once well delineated, the common duct was able to be identified and a choledochotomy was made for common duct exploration. An impacted stone in the ampulla was extracted, was approximately 1 to 1.5 cm in size. Completion cholangiogram through the T-tube showed good contrast flow into the duodenum. He had no evidence of neoplasm. A drain was placed in the usual way and the T-tube was brought out through the incision as well. Electronically Signed By: RADHA FRANCIS MD 06/01/21 1337 PATIENT NAME: RENAN MICHEL DISCHARGE SUMMARY DATE OF : 70 REPORT #: [id number] PHYSICIAN: RADHA FRANCIS MD PCP: TERESA SHAH PA-C REPORT IS CONFIDENTIAL AND NOT TO BE RELEASED WITHOUT AUTHORIZATION [facility] [address] [place], [place] [address] Signed Postoperatively, he had much improvement. The liver enzymes predictably became far more normal. On the first postoperative day, his T-tube was clamped off. He was observed for any symptoms. He had no nausea or other problem and the T-tube was left clamped off. The accessory drain showed no evidence of bile leak and it was removed on the day of discharge. It was anticipated the patient will undergo cholangiogram as an outpatient in three weeks or so and will follow up in my office afterwards for removal of the T-tube if appropriate. The patient is recommended to lift no more than 20 pounds for the next 4 weeks. He is permitted to work if he can stay within that parameter. DISCHARGE MEDICATIONS: 1. Cipro 500 mg one tablet b.i.d. to take nine and save one to be taken prior to cholangiogram. 2. Ibuprofen 600 mg p.o. q.6 hours as needed for pain, #60. 3. Percocet 7.5/325 one to two p.o. q.6 hours as needed for severe pain, #10. 4. Tylenol plain 500 mg two tablets p.o. q.6 hours as needed for pain, #60. 5. Famotidine 20 mg p.o. q.12 hours, #60. DISCHARGE DIAGNOSES: 1. Severe and advanced chronic and acute calculus cholecystitis with choledocholithiasis and complete bile duct obstruction with secondary cholangitis. 2. Status post laparoscopic cholecystectomy, conversion to open cholecystectomy with open common bile duct exploration, extraction of distal impacted common duct stone and placement of T-tube and flexible choledochoscopy. MD BARBIE Treviño/ROSEMARIEL /[id number] cc: Teresa Shah PA-C Electronically Signed By: RADHA FRANCIS MD 06/01/21 1337 PATIENT NAME: RENAN MICHEL DISCHARGE SUMMARY DATE OF : 70 REPORT #: [id number] PHYSICIAN: RADHA FRANCIS MD PCP: TERESA SHAH PA-C REPORT IS CONFIDENTIAL AND NOT TO BE RELEASED WITHOUT AUTHORIZATION [facility] [address] [facility] [place], [place] [address] Signed Copies: TERESA SHAH PA-C ~ Electronically Signed By: RADHA FRANCIS MD 06/01/21 1337 PATIENT NAME: RENAN MICHEL DISCHARGE SUMMARY DATE OF : 70 REPORT #: [id number] PHYSICIAN: RADHA FRANCIS MD PCP: TERESA SHAH PA-C REPORT IS CONFIDENTIAL AND NOT TO BE RELEASED WITHOUT AUTHORIZATION
== END 2021-05-31 15:00 | disposition home or self-care (01) | DRG 413 ==
LOC: ED 11:18 → MS 17:31
PROVIDERS: ADMIT Surgery; ATTEND Surgery
PROC: 0FC90ZZ Extirpation of Matter from Common Bile Duct, Open Approach (ICD-10-PCS; 2021-05-28)
PROC: 0F9900Z Drainage of Common Bile Duct with Drainage Device, Open Approach (ICD-10-PCS; 2021-05-28)
PROC: 0FT40ZZ Resection of Gallbladder, Open Approach (ICD-10-PCS; principal; 2021-05-28 09:12)
PROC: 0FJ44ZZ Inspection of Gallbladder, Percutaneous Endoscopic Approach (ICD-10-PCS; 2021-05-28 09:12)
PROC: BF532Z0 Other Imaging of Gallbladder and Bile Ducts using Fluorescing Agent, Intraoperative (ICD-10-PCS; 2021-05-28 09:12)
DX: K80.47 Calculus of bile duct with acute and chronic cholecystitis with obstruction (principal); Z79.899 Other long term (current) drug therapy; Z88.0 Allergy status to penicillin; K74.00 Hepatic fibrosis, unspecified
CPT/HCPCS: 00790; 74177; 74300; 76705; 80053; 81001; 82140; 83605; 83690; 85025; 85610; 87040; 87070; 87075; 87077; 87186; 87205; 96375; 99285-25; A9270; C9803; G0480; J0690; J1100; J1644; J1885; J2001; J2270; J2370; J2405; J2704; J3010; J7030; J7121; Q9967; U0003

== ENCOUNTER 2024-09-30 08:03 | Day surgery (SDC) | payer BC ==
[~2024-09-30] VITALS: Ht 177.8 cm; Wt 109.5 kg
[~2024-09-30 08:03] MED LIST: ACETAMINOPHEN500 MG PO; CEFAZOLIN SODIUM 2 GM/20 ML SYR IV SCH; CIPROFLOXACIN500 MG PO; CYCLOBENZAPRINE5 MG PO; DICLOFENAC SODI50 MG PO; DICLOFENAC SODI75 MG PO; FAMOTIDINE20 MG PO; GABAPENTIN600 MG PO; IBLOOD GLUCOSE TEST STRIP 1 EA TEST VI PRN; IBUPROFEN600 MG PO; LACTATED RINGER'S 1,000 ML IV SCH; LIDOCAINE HCL 1% 5 ML SDV INJ ONE; MIDAZOLAM HCL 5 MG/5 ML VIAL IV PRN; MULTI VITAMIN1 EACH PO; OXYCODON-ACETA1 EAC2 PO; OXYCODONE HCL5 MG PO; SENNA LAX8.6 MG PO; XARELTO10 MG PO; fentaNYL citrate 100 MCG/2 ML VIAL IV PRN
[2024-09-30] MEDS ORDERED: MIDAZOLAM HCL 5 MG/5 ML VIAL ONE ×2 (08:17→08:29)
[2024-09-30 08:22] VITALS: BP 146/96
[2024-09-30] MEDS ORDERED: LOSARTAN-HCTZ1 EAC2 PO (08:23)
[2024-09-30] MEDS ORDERED: fentaNYL citrate 100 MCG/2 ML VIAL ONE (08:30)
--- NOTE | 2024-09-30 09:45 | NUR ---
09/30/24 0945 Mary Akbar 0912-PATIENT ARRIVED TO PACU ON 2L NC RR EVEN. PATIENT LAYING LEFT LATERAL DROWSY REACTIVE TO VERBAL STIMULI ORIENTED TO PACU ABDOMEN ROUND AND SOFT. IVF INFUSING. SR. 0920-PATIENT SLEEPING SNORING PLACED ON RA 95% RR EVEN. IVF INFUSING. 0924-PATIENT SLEEPING SNORING 02 ON RA 88-89% AROUSES TO VERBAL STIMULI ENCOURAGED TO TAKE DEEP BREATHES. 0925-02 SAT 87% ENCOURAGED TO COUGH AND O2 SAT INCREASED TO 96% RR EVEN. SLEEP APNEA HANDOUT TO GO HOME WITH PATIENT. 0932-PATIENT AWAKE HOB ELEVATED DRINKING WATER RA 94% RR EVEN. ENCOURAGED TO PASS GAS. 0939-PATIENT AWAKE REPORTS "STOMACH CRAMPS" DENIES NAUSEA RA 95% RR EVEN. SR HR 70'S. 0945-PATIENT HAS EYES CLOSED RA 94% RR EVEN.
[2024-09-30 09:56] VITALS: BP 127/95
--- NOTE | 2024-09-30 12:22 | OR ---
[facility] [address], [place] [address] Signed DATE OF OPERATION: 09/30/2024 SURGEON: Gabrielle Hobbs MD PREOPERATIVE DIAGNOSES: 1. Half-sister with a history of precancerous colonic polyps in her 40s. 2. Maternal aunt with colon cancer in her 50s. POSTOPERATIVE DIAGNOSES: 1. 5 mm polyp at 40 cm in left colon. 2. 5 mm polyp at 20 cm in sigmoid colon. 3. Minimal sigmoid diverticulosis. 4. Minimal internal hemorrhoids. PROCEDURE: Colonoscopy with hot biopsy. ESTIMATED BLOOD LOSS: None. INDICATIONS: Renan is a 53-year-old gentleman asked to see me for his initial colonoscopy. He explained that his half-sister had precancerous polyps removed in her 40s. She is now in her 70s. His maternal aunt also had colon cancer in her 50s. He has no lower GI complaints. His ex- had come with him to the office. She told me I helped her with a colonoscopy previously. Consequently, she is familiar with this process along with our bowel prep. In the office, I gave him a pamphlet on colonoscopy. We went over together. There is risk including, but not limited to gas bloating, crampy abdominal pain, bleeding, perforation requiring surgery, and missed diagnosis. We also reviewed the written instructions for the bowel prep line by line. We asked him to hold the diclofenac three days prior to the procedure which we marked on our sheet. In addition, we reviewed the need for IV conscious sedation. He understands an adult person has to take him home afterwards. Apparently that is going to be his ex-. He had expressed understanding and wished to proceed. DESCRIPTION OF PROCEDURE: Renan was taken into our endoscopy suite and placed in the left lateral decubitus position. He was given a total of 8 mg of Versed and 150 mcg of fentanyl in divided doses. He was frequently awake, talking and moaning throughout the procedure. We took multiple breaks to give him a rest and allow more medicine to be given. In the end, we Electronically Signed By: GABRIELLE HOBBS MD 09/30/24 1222 PATIENT NAME: RENAN MICHEL OPERATIVE REPORT DATE OF : 70 REPORT #: [id number] PHYSICIAN: GABRIELLE HOBBS MD PCP: TERESA FLORES PA-C REPORT IS CONFIDENTIAL AND NOT TO BE RELEASED WITHOUT AUTHORIZATION [facility] [address], [place] [address] Signed thought he would probably be better served and safer if he had monitored anesthesia care propofol infusion. On digital rectal exam he had good sphincter tone. There were no masses. Really no external hemorrhoids. The adult colonoscope had been introduced and advanced under direct visualization of the camera. Again, we stopped multiple times to allow him to rest and recover and gave more Versed and fentanyl. We eventually made it into the cecum itself. His prep was quite excellent. We could easily see the appendiceal orifice and ileocecal valve. The scope was then slowly withdrawn. We took out the two polyps mentioned above with the help of our hot biopsy forceps. We could see some diverticula in the sigmoid colon. They were quite shallow, very small, few and scattered about. Once in the rectum, the scope was retroflexed. He has very minimal internal hemorrhoid tissue. After this, the gas was suctioned out, colonoscope removed. Renan tolerated the procedure quite well. RECOMMENDATIONS: I will see Renan back in my office in 7 to 14 days to review his results. He will likely be on the five year plan mainly due to his family history. We need to follow up the Pathology report for his two polyps. In the future, he probably would be better served with monitored anesthesia care and propofol infusion. Gabrielle Hobbs MD ALB/MODL /[id number] cc: MD Teresa Guillaume PA-C Copies: GABRIELLE HOBBS MD, CHLOE K PA-C ~ Electronically Signed By: GABRIELLE HOBBS MD 09/30/24 1222 PATIENT NAME: RENAN MICHEL OPERATIVE REPORT DATE OF : 70 REPORT #: [id number] PHYSICIAN: GABRIELLE HOBBS MD PCP: TERESA FLORES PA-C REPORT IS CONFIDENTIAL AND NOT TO BE RELEASED WITHOUT AUTHORIZATION
--- NOTE | 2024-10-01 15:30 | PATH ---
[facility] [address] [place], [place] [address] Signed SPECIMEN(S): A DESCENDING COLON POLYP AT 40 CM SPECIMEN(S): B SIGMOID POLYP AT 20 CM SPECIMEN SOURCE: A. DESCENDING COLON POLYP AT 40 CM B. SIGMOID POLYP AT 20 CM CLINICAL HISTORY: Screening FINAL PATHOLOGIC DIAGNOSIS: A. Colon, descending at 40 cm, polypectomy: - Colonic mucosa with no significant pathologic changes B. Colon, sigmoid at 20 cm, polypectomy: - Hyperplastic polyp BRP MICROSCOPIC EXAMINATION: Histologic sections of all submitted blocks are examined by light microscopy. These findings, together with the gross examination, support the pathologic diagnosis. GROSS DESCRIPTION: A. The specimen, labeled and designated "Grabner, descending colon polyp at 40 cm," is received in formalin and consists of one johnson soft tissue fragment, 0.3 cm. Entirely submitted in (A1). B. The specimen, labeled and designated "Grabner, sigmoid polyp at 20 cm," is received in formalin and consists of two johnson soft tissue fragments, ranging from 0.2-0.3 cm. Entirely submitted in (B1). VB (under the direct supervision of a pathologist) The Gross Description was prepared using a voice recognition system. The report was reviewed for accuracy; however, sound-alike word errors, addition and/or deletions may occur. If there is any question about this report, please contact Client Services. ADDITIONAL NOTES: Immunohistochemical and/or in situ hybridization studies if performed in this case included appropriate positive controls that reacted as expected. This test was developed and its performance characteristics determined by [facility]. It has not been cleared or approved by the U.S. Food and Drug Administration. The FDA has determined that PATIENT NAME: RENAN MICHEL PATHOLOGY DATE OF : 70 REPORT #: [id number] PHYSICIAN: [facility] PCP: TED FLORES PA-C REPORT IS CONFIDENTIAL AND NOT TO BE RELEASED WITHOUT AUTHORIZATION [facility] [address] [place], [place] [address] Signed such clearance or approval is not necessary. This test is used for clinical purposes. It should not be regarded as investigational or for research. [facility] is certified under the Clinical Laboratory Improvement Amendments of 1988 (CLIA) as qualified to perform high complexity clinical laboratory testing. PERFORMING LABORATORY: Technical component was performed by [facility], [address] [place] [id number] (CLIA# [id number]). Professional interpretation was performed by [facility] - [facility], [facility] [address] [address] (CLIA#:[id number]). Diagnostician: Thiago Tavares MD Pathologist Electronically Signed 10/01/2024 Copies: ~ PATIENT NAME: RENAN MICHEL PATHOLOGY DATE OF : 70 REPORT #: [id number] PHYSICIAN: [facility] PCP: TED FLORES PA-C REPORT IS CONFIDENTIAL AND NOT TO BE RELEASED WITHOUT AUTHORIZATION
== END 2024-09-30 10:00 | disposition home or self-care (01) ==
LOC: DS 08:03
PROVIDERS: ATTEND Colon & Rectal Surgery
PROC: 0DBN8ZZ Excision of Sigmoid Colon, Via Natural or Artificial Opening Endoscopic (ICD-10-PCS; 2024-09-30)
PROC: 0DBG8ZZ Excision of Left Large Intestine, Via Natural or Artificial Opening Endoscopic (ICD-10-PCS; principal; 2024-09-30 09:00)
DX: Z12.11 Encounter for screening for malignant neoplasm of colon (principal); K63.5 Polyp of colon; K64.8 Other hemorrhoids; K57.30 Diverticulosis of large intestine without perforation or abscess without bleeding; I10 Essential (primary) hypertension; E78.5 Hyperlipidemia, unspecified; G47.33 Obstructive sleep apnea (adult) (pediatric); M19.90 Unspecified osteoarthritis, unspecified site; Z79.899 Other long term (current) drug therapy; Z88.0 Allergy status to penicillin; Z80.0 Family history of malignant neoplasm of digestive organs
CPT/HCPCS: 99153; G0500; J0690; J2250; J3010; J7121